=== PATIENT | female | born 1960 | race Two or more races ===

== ENCOUNTER 2017-09-25 04:00 | Inpatient (IN) | payer OTHER ==
[~2017-09-25] VITALS: Ht 167.6 cm; Wt 97.3 kg
[2017-09-25] MEDS ORDERED: ONDANSETRON 2MG/ML, 2ML ONE (04:43)
[2017-09-25] MEDS ORDERED: ASPIRIN 81 MG TABLET CHEW ONE (04:44)
[2017-09-25 04:52] LABS: HEMATOCRIT 40.6 % (34.6-47.8); HEMOGLOBIN 14.1 g/dL (11.7-16.4)
[2017-09-25 04:56] LABS: BLOOD UREA NITROGEN 7 mg/dL (7-18)
[2017-09-25 04:59] LABS: ASPARTATE AMINO TRANSFERASE 27 U/L (15-37)
[2017-09-25] MEDS ORDERED: ASPIRIN 81 MG TABLET CHEW PO ONE (05:00)
[2017-09-25] MEDS ORDERED: SODIUM CHLORIDE FLUSH 10ML SYR IVF ONE (05:00)
[2017-09-25] MEDS ORDERED: ONDANSETRON 2MG/ML, 2ML IVPush ONE (05:00)
[2017-09-25] MEDS ORDERED: MORPHINE SULFATE 4 MG/ML, 1ML IVPush PRN (05:00)
[2017-09-25 05:04] LABS: IS PT STATUS REG ER OR PRE ER? YES
[2017-09-25] MEDS ORDERED: SODIUM CHLORIDE FLUSH 10ML SYR IVF PRN (07:30)
[2017-09-25] MEDS ORDERED: ONDANSETRON 2MG/ML, 2ML IVPush PRN (08:00)
[2017-09-25] MEDS ORDERED: morphine SULFATE 10 MG/ML, 1ML IVPush PRN (08:00)
[2017-09-25] MEDS ORDERED: NITROGLYCERIN 0.4 MG/SPRAY SL PRN (08:00)
[2017-09-25] MEDS ORDERED: ACETAMINOPHEN 325 MG TABLET PO PRN (08:00)
[2017-09-25] MEDS ORDERED: ONDANSETRON ODT 4 MG PO PRN (08:00)
[2017-09-25] MEDS ORDERED: NITROGLYCERIN 0.4 MG BOTTLE (25 TABS) SL PRN (08:00)
[2017-09-25 08:30] VITALS: BP 165/84
[2017-09-25 08:39] VITALS: BP 165/84
[2017-09-25] MEDS: ENOXAPARIN 40 MG/0.4 ML SQ SCH (09:24)
[2017-09-25 10:00] VITALS: BP 153/75
[2017-09-25 10:33] LABS: IS PT STATUS REG ER OR PRE ER? NO
[2017-09-25] MEDS ORDERED: REGADENOSON 0.4 MG/5 ML SYRINGE ONE (11:47)
[2017-09-25 14:13] VITALS: BP 118/71
[2017-09-25 17:01] LABS: IS PT STATUS REG ER OR PRE ER? NO
[2017-09-25 17:48] VITALS: BP_SYST 133; BP_SYST 166; BP_DIAS 74; BP_DIAS 84; BP_DIAS 90
[2017-09-25 19:17] VITALS: BP 112/65
[2017-09-26 02:08] VITALS: BP_SYST 111; BP_SYST 145; BP_SYST 152; BP_DIAS 70; BP_DIAS 73; BP_DIAS 82
[2017-09-26] MEDS ORDERED: ASPIRIN 325 MG TABLET PO SCH (06:00)
[2017-09-26] MEDS ORDERED: FLU VACC QS2017-18 (36MOS+) UP/PF 0.5 ML IM-VACC ONE (08:00)
[2017-09-26] MEDS ORDERED: PNEUMOCOCCAL 23 VACCINE IM-VACC ONE (08:00)
[2017-09-26] MEDS ORDERED: ACET-1600 PO (08:41)
[2017-09-26] MEDS ORDERED: ASPI-621 PO (08:41)
[2017-09-26] MEDS ORDERED: LISI-167 PO (08:41)
[2017-09-26 08:52] VITALS: BP 153/79
[2017-09-26] MEDS: ENOXAPARIN 40 MG/0.4 ML SQ SCH (08:56)
== END 2017-09-26 13:29 | disposition home or self-care (01) | DRG 206 ==
LOC: ED 05:24 → EDIP 07:22 → 5SO 08:15 → DCLOUNGE 09-26 13:15
PROVIDERS: ADMIT Internal Medicine; ATTEND Internal Medicine
DX: M94.0 Chondrocostal junction syndrome [Tietze] (principal); I11.9 Hypertensive heart disease without heart failure; F12.90 Cannabis use, unspecified, uncomplicated; R00.1 Bradycardia, unspecified; Z23 Encounter for immunization
CPT/HCPCS: 36415; 71020; 78452; 80053; 80061; 81003; 83735; 84436; 84443; 84484; 85025; 90686; 90732; 93005; 93017; 93306; 99285; J1650; J2785; A9502; C9898